=== PATIENT | female | born 1960 | race Caucasian/White ===

== ENCOUNTER 2016-08-15 21:41 | Emergency (ER) | payer OTHER ==
[~2016-08-15] VITALS: Ht 157.5 cm; Wt 68.9 kg
--- NOTE | 2016-08-15 22:09 | ED UPPER/LOWER EXTREMITY COMPL ---
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 LANDED ON TOP OF LEFT ARM WITH ARM EXTENDED OVERHEAD, ON CARPETED FLOOR. DENIES HEADSTRIKE, DENIES LOC. GOOD PMS TO LEFT HAND. STATES CAND BEND ELBOW OR RAISE ARM. Triage Nurses Notes Reviewed? yes HPI: 55-year-old female status post mechanical fall onto her left arm with the arm extended causing severe immediate pain to the l anterior shoulder. This occurred prior to arrival. She has limited range of motion to the shouldersecondary to the pain. No previous injuries to the area. No neurologic symptoms no other injuries noted neck pain no head injury or loss of consciousness no treatment thus far. Pain is worse with palpation and motion. Initially patient declined anything for pain Past History Travel History Traveled to [place] past 21 day No Medical History Any Pertinent Medical History? see below for history Cardiovascular: hypertension Surgical History Surgical History: non-contributory Psychosocial History What is your primary language Croatian Tobacco Use: Never used ETOH Use: occasional use Illicit Drug Use: denies illicit drug use Family History Hx Contributory? No Review of Systems Review of Systems Constitutional: Reports: see HPI. EENTM: Reports: no symptoms. Respiratory: Reports: no symptoms. Cardiovascular: Reports: no symptoms. Gastrointestinal/Abdominal: Reports: no symptoms. Genitourinary: Reports: no symptoms. Skin: Reports: no symptoms. Neurological/Psychological: Reports: no symptoms. Hematologic/Endocrine: Reports: no symptoms. Immunological: Reports: no symptoms. All Other Systems: Reviewed and Negative Physical Exam Physical Exam General Appearance: well developed/nourished Comments: Well-developed well-nourished no apparent distress. HEENT: Atraumatic, extraocular motion intact Neck: Supple, no lymphadenopathy Back: Nontender Respiratory: No respiratory distress Extremities: No edema, full range of motion Neuro: Alert and oriented x3 Psych: Mood affect normal, normal memory normal judgment. Skin: Warm and dry, no rash on exposed skin Left upper extremity, left shoulder, moderate swelling to the glenohumeral region and tenderness to the proximal humeral region. Range of motion is severely limited at the shoulder secondary to pain. No deformity. No clavicular tenderness or chromic clavicular joint tenderness no scapular tenderness. Elbow exam is benign full range of motion nontender. Neurovascularly intact left upper extremity Progress Differential Diagnosis: compartment syndrome, contusion, dislocation, fracture Plan of Care: Orders Procedure Date/time Status Durable Medical Equipment 08/15 2225 Active Current Medications Sig/Joyce Start time Last Medication Dose Stop Time Status Admin Ibuprofen 600 MG ONCE ONE 08/15 2229 UNVr (Motrin) 08/15 2230 Diagnostic Imaging: Viewed by Me: Radiology Read. Discussed w/RAD: Radiology Read. Radiology Impression: PATIENT: CANDE LYNCH PRESENT AGE: 55 PATIENT ACCOUNT NO: [id number] : 61 LOCATION: [facility] ORDERING PHYSICIAN: NATA RODRIGUEZ MD SERVICE DATE: 08/15/16 EXAM TYPE: RAD - XRY-ELBOW 3 OR MORE VIEWS, L; XRY-SHOULDER COMPLETE-LEFT EXAMINATION: XR SHOULDER, LEFT XR ELBOW, LEFT CLINICAL INFORMATION: Shoulder pain and elbow pain status post fall. COMPARISON: None. TECHNIQUE: AP, lateral, and both oblique views of the left elbow. AP, Grashey, and scapular views of the left shoulder FINDINGS: Left shoulder: There is a comminuted fracture of the left proximal humerus with a transverse component at the surgical neck and a sagittal component through the greater tuberosity. There is no significant displacement. Glenohumeral joint is normal. Acromioclavicular joint is unremarkable. Soft tissues are normal. Left elbow: No fracture or malalignment. Bone mineralization is normal. No joint effusion. A small enthesopathic spur is present at the lateral humeral epicondyle. Soft tissues are otherwise unremarkable. IMPRESSION: 1. Comminuted fracture of the proximal humerus, likely a Neer one-part fracture 2. No acute fracture or abnormalities at the left elbow DICTATED BY: JAMEEL YBARRA MD DATE/TIME DICTATED:08/15/162219 [employer] CONSERVATOR:MICHAEL DATE/TIME TRANSCRIBED:08/15/162219 Comments: On reevaluation patient is still in pain, she agreed to take Motrin 600 mg Shoulder immobilizer was applied to left upper extremity by myself for the proximal humerus fracture. She will require ice, elevation, orthopedic follow- up, avoid range of motion initially at the shoulder. Departure Departure Disposition: HOME OR SELF CARE Condition: Stable Clinical Impression Primary Impression: Proximal humerus fracture Qualifiers: Encounter type: initial encounter Fracture type: closed Fracture morphology: other fracture Fracture alignment: nondisplaced Laterality: left Qualified Code: S42.295A - Other nondisplaced fracture of upper end of left humerus, initial encounter for closed fracture Referrals: NASIR TORIBIO,LEILANI PEPE (PCP/Family) Additional Instructions: Stay in sling, sleep in a recliner, apply ice to the shoulder for 20 minutes every hour for pain relief Motrin and Tylenol as needed for pain Follow-up with orthopedist later this week or early next week for further evaluation and treatment of your proximal humerus fracture Departure Forms: Customer Survey General Discharge Information
--- NOTE | 2016-08-15 22:26 | RADIOLOGY REPORT ---
EXAMINATION: XR SHOULDER, LEFT XR ELBOW, LEFT CLINICAL INFORMATION: Shoulder pain and elbow pain status post fall. COMPARISON: None. TECHNIQUE: AP, lateral, and both oblique views of the left elbow. AP, Grashey, and scapular views of the left shoulder FINDINGS: Left shoulder: There is a comminuted fracture of the left proximal humerus with a transverse component at the surgical neck and a sagittal component through the greater tuberosity. There is no significant displacement. Glenohumeral joint is normal. Acromioclavicular joint is unremarkable. Soft tissues are normal. Left elbow: No fracture or malalignment. Bone mineralization is normal. No joint effusion. A small enthesopathic spur is present at the lateral humeral epicondyle. Soft tissues are otherwise unremarkable. IMPRESSION: 1. Comminuted fracture of the proximal humerus, likely a Neer one-part fracture 2. No acute fracture or abnormalities at the left elbow
== END 2016-08-15 22:41 ==
LOC: ERH 21:41
DX: S42.202A Unspecified fracture of upper end of left humerus, initial encounter for closed fracture (principal); W19.XXXA Unspecified fall, initial encounter
CPT/HCPCS: 73030-LT; 73080-LT